=== PATIENT | female | born 1965 | race Caucasian/White ===

== ENCOUNTER 2018-01-04 21:54 | Emergency (ER) | payer SELFPAY ==
[~2018-01-04] VITALS: Ht 165.1 cm; Wt 69.2 kg
[~2018-01-04 21:54] MED LIST: ABILIFY5 MG PO
[2018-01-04 22:10] VITALS: BP 135/80
[2018-01-04 22:38] LABS: HEMATOCRIT 37.1 % (36.0-46.0); HEMOGLOBIN 12.9 G/DL (11.9-15.5); MCH 31.3 PG (29.0-34.0); MCHC 34.8 G/DL (30.0-36.0); PLATELET COUNT 239 K/uL (156-360); RBC DIS.WIDTH-CV 12.5 % (11.8-14.6); RBC DIS.WIDTH-SD 41.6 % (39-53); RED BLOOD COUNT 4.12 M/uL (3.80-5.20); WHITE BLOOD COUNT 5.9 K/uL (4.1-10.2)
[2018-01-04 22:49] LABS: ALBUMIN 3.9 g/dL (3.2-4.8)
[2018-01-04 22:50] LABS: CHLORIDE 105 mEq/L (99-109); POTASSIUM 4.1 mEq/L (3.7-5.4); SODIUM 139 mEq/L (136-147)
[2018-01-04 22:52] LABS: GLUCOSE 95 mg/dL (70-99); TOTAL PROTEIN 6.1 g/dL (6.4-8.3)
[2018-01-04 22:54] LABS: TOTAL BILIRUBIN 0.3 mg/dL (0.0-1.0)
[2018-01-04 22:55] LABS: ALKALINE PHOSPHATASE 62 IU/L (3-129)
[2018-01-04 22:56] LABS: CREATININE 0.8 mg/dL (0.6-1.3); GFR ESTIMATE (CALCULATED) > 59 mL/min/
[2018-01-04 22:57] LABS: AST (GOT) 12 IU/L (2-34); UREA NITROGEN (BUN) 15 mg/dL (9-23)
[2018-01-04 22:58] LABS: ALT (GPT) 9 IU/L (3-49)
[2018-01-04 23:05] LABS: QUANTITATIVE HCG < 4.0 MIU/ML
== END 2018-01-04 22:53 | disposition left against medical advice (07) ==
LOC: EME 21:54
DX: R07.9 Chest pain, unspecified (principal); Z53.21 Procedure and treatment not carried out due to patient leaving prior to being seen by health care provider
CPT/HCPCS: 80053; 81003; 84702; 85027; 93005